=== PATIENT | female | born 1955 | race Caucasian/White ===

== ENCOUNTER → 2016-12-30 | Outpatient (CLI) | payer OTHER ==
[~2016-12-30] MED LIST: ATACAND HCT 321 EACH PO; FISH OIL 1,0001 EACH PO; LEXAPRO10 MG PO; LIPITOR TAB 2020 MG PO; METFORMIN HCL500 M2 PO; NORCO 5-325 TA1 EACH PO; PENICILLIN V P500 MG PO; PLAVIX 75 MG TA75 MG PO
== END ==
LOC: KOH-I 09:18
DX: M27.49 Other cysts of jaw (principal)
CPT/HCPCS: 70492; Q9962

== ENCOUNTER → 2017-04-26 | Day surgery (SDC) | payer OTHER | END | disposition home or self-care (01) | LOC: OR 05:48 | PROVIDERS: Dentist Oral and Maxillofacial Surgery | PROC: 0CDXXZ0 Extraction of Lower Tooth, Single, External Approach (ICD-10-PCS; 2017-04-26) | PROC: 0NBT0ZZ Excision of Right Mandible, Open Approach (ICD-10-PCS; principal; 2017-04-26 07:45) | DX: K09.0 Developmental odontogenic cysts (principal); K01.1 Impacted teeth; F17.210 Nicotine dependence, cigarettes, uncomplicated; J44.9 Chronic obstructive pulmonary disease, unspecified; I25.10 Atherosclerotic heart disease of native coronary artery without angina pectoris; I10 Essential (primary) hypertension; E11.9 Type 2 diabetes mellitus without complications; M81.0 Age-related osteoporosis without current pathological fracture; E78.5 Hyperlipidemia, unspecified; Z88.5 Allergy status to narcotic agent; Z79.84 Long term (current) use of oral hypoglycemic drugs; Z79.02 Long term (current) use of antithrombotics/antiplatelets; Z79.899 Other long term (current) drug therapy | CPT/HCPCS: 70110; 82962; J0295; J1100; J1885; J2250; J2405; J2710; J3010; J7030; J7050; J7120 ==